=== PATIENT | female | born 1975 | race Caucasian/White ===

== ENCOUNTER 2016-06-27 15:10 | Emergency (ER) | payer OTHER ==
[~2016-06-27] VITALS: Ht 154.9 cm; Wt 72.5 kg
[~2016-06-27 15:10] MED LIST: LISI-660 PO; METF500T4 PO
[2016-06-27 15:15] VITALS: BP 120/88
[2016-06-27] MEDS ORDERED: ATOR10TA84 PO (15:22)
[2016-06-27] MEDS ORDERED: IBUPROFEN 800 MG TABLET PO ONE (19:00)
== END 2016-06-27 19:06 | disposition home or self-care (01) ==
LOC: EMS 15:14
DX: L02.92 Furuncle, unspecified (principal)
CPT/HCPCS: 56405; 82962; 99283; 99284

== ENCOUNTER 2016-08-02 15:34 | Emergency (ER) | payer OTHER ==
[~2016-08-02] VITALS: Ht 154.9 cm; Wt 77.3 kg
[~2016-08-02 15:34] MED LIST changes: +ATOR10TA84 PO
[2016-08-02 16:02] LABS: GLUCOSE,POINT OF CARE 144 MG/DL (70-110)
[2016-08-02 16:18] LABS: BASOPHILS % (AUTO) 0.3 % (0.0-2.0); EOSINOPHILS % (AUTO) 2.7 % (1.0-6.0); HEMATOCRIT 38.1 % (36-46); HEMOGLOBIN 12.2 g/dL (12.0-16.0); LYMPHOCYTES # (AUTO) 2.6 K/uL (1.0-4.8); MEAN CORPUSCULAR HEMOGLOBIN 27.1 pg (26.0-34.0); MEAN CORPUSCULAR HGB CONC 31.9 G/dL (31.0-37.0); MEAN CORPUSCULAR VOLUME 85 fL (80-100); MONOCYTES # (AUTO) 0.6 K/uL (0.1-1.0); MONOCYTES % (AUTO) 6.6 % (2.0-9.0); NEUTROPHILS % (AUTO) 63.4 % (40.0-70.0); PLATELET COUNT (AUTO) 256 K/uL (150-450); RED BLOOD CELL COUNT(AUTO) 4.48 MIL/uL (4.00-5.20); RED CELL DISTRIBUTION WIDTH 15.9 % (11.5-14.5); WHITE BLOOD COUNT (AUTO) 9.5 K/uL (4.5-11.0)
[2016-08-02 16:24] LABS: ANION GAP 10 mmol/L (8-16); CALCIUM, TOTAL 9.4 mg/dL (8.8-10.5); CARBON DIOXIDE 26 mmol/L (22-29); CHLORIDE 101 mmol/L (98-107); CREATININE 0.96 mg/dL (0.60-1.30); GLOMERULAR FILTR. RATE CALC > 60 mL/min (>60); SODIUM SERUM 137 mmol/L (136-145); UREA NITROGEN, BLOOD 14 mg/dL (7-18)
[2016-08-02 16:36] LABS: ALANINE AMINOTRANSFERASE 53 U/L (12-78); ALBUMIN 3.7 g/dL (3.4-5.0); ASPARTATE AMINOTRANSFERASE 21 U/L (15-37); BILIRUBIN,TOTAL 0.2 mg/dL (0.1-1.0); TOTAL PROTEIN, SERUM 7.7 g/dL (6.4-8.2)
[2016-08-02 16:45] VITALS: BP 137/103
[2016-08-02] MEDS ORDERED: ONDANSETRON HCL 4 MG/2 ML VIAL IM ONE (16:45)
[2016-08-02] MEDS ORDERED: DONNATAL/LIDOCAINE/MAALOX 55 ML BOTTLE PO ONE (16:45)
[2016-08-02 17:15] LABS: APPEARANCE,URINE CLOUDY (CLEAR); GLUCOSE, URINE (UA) NEGATIVE (NEGATIVE); KETONES,URINE NEGATIVE (NEGATIVE); LEUKOCYTE ESTERASE ,URINE NEGATIVE (NEGATIVE); OCCULT BLOOD,URINE NEGATIVE (NEGATIVE); PH,URINE 6.5 (5.0-8.0); PROTEIN,URINE NEGATIVE (NEGATIVE)
[2016-08-02 17:24] LABS: ADD UA MICROSCOPIC NO
[2016-08-02] MEDS ORDERED: PANTOPRAZOLE SODIUM 40 MG DR TABLET PO ONE (17:45)
== END 2016-08-02 19:10 | disposition home or self-care (01) ==
LOC: EMS 15:41
DX: K29.70 Gastritis, unspecified, without bleeding (principal); G43.909 Migraine, unspecified, not intractable, without status migrainosus; J45.909 Unspecified asthma, uncomplicated; E11.9 Type 2 diabetes mellitus without complications; I10 Essential (primary) hypertension; E78.00 Pure hypercholesterolemia, unspecified
CPT/HCPCS: 36415; 80053; 81003; 82962; 83690; 84702; 85025; 96372; 99284; J2405; Z7610

== ENCOUNTER 2016-09-23 07:05 | Emergency (ER) | payer OTHER ==
[~2016-09-23] VITALS: Ht 154.9 cm; Wt 77.0 kg
[2016-09-23 07:22] LABS: GLUCOSE,POINT OF CARE 147 MG/DL (70-110)
[2016-09-23 07:53] LABS: BASOPHILS % (AUTO) 0.3 % (0.0-2.0); HEMATOCRIT 39.6 % (36-46); HEMOGLOBIN 12.8 g/dL (12.0-16.0); LYMPHOCYTES # (AUTO) 0.9 K/uL (1.0-4.8); MEAN CORPUSCULAR HEMOGLOBIN 26.9 pg (26.0-34.0); MEAN CORPUSCULAR HGB CONC 32.2 G/dL (31.0-37.0); MEAN CORPUSCULAR VOLUME 84 fL (80-100); MONOCYTES # (AUTO) 0.4 K/uL (0.1-1.0); MONOCYTES % (AUTO) 4.4 % (2.0-9.0); NEUTROPHILS % (AUTO) 84.3 % (40.0-70.0); PLATELET COUNT (AUTO) 242 K/uL (150-450); RED BLOOD CELL COUNT(AUTO) 4.75 MIL/uL (4.00-5.20); WHITE BLOOD COUNT (AUTO) 9.5 K/uL (4.5-11.0)
[2016-09-23 08:04] LABS: ANION GAP 10 mmol/L (8-16); CARBON DIOXIDE 28 mmol/L (22-29); CHLORIDE 102 mmol/L (98-107); CREATININE 0.87 mg/dL (0.60-1.30); GLOMERULAR FILTR. RATE CALC > 60 mL/min (>60); POTASSIUM 3.8 mmol/L (3.5-5.1); SODIUM SERUM 140 mmol/L (136-145); UREA NITROGEN, BLOOD 18 mg/dL (7-18)
[2016-09-23 08:09] LABS: ALANINE AMINOTRANSFERASE 38 U/L (12-78); ALBUMIN 3.6 g/dL (3.4-5.0); ASPARTATE AMINOTRANSFERASE 16 U/L (15-37); BILIRUBIN,TOTAL 0.5 mg/dL (0.1-1.0); TOTAL PROTEIN, SERUM 7.7 g/dL (6.4-8.2)
[2016-09-23] MEDS ORDERED: ONDANSETRON HCL 4 MG/2 ML VIAL IVP ONE (08:15)
[2016-09-23] MEDS ORDERED: KETOROLAC TROMETHAMINE 30 MG/ML VIAL IVP ONE (08:15)
[2016-09-23 09:11] LABS: ADD UA MICROSCOPIC YES; APPEARANCE,URINE CLOUDY (CLEAR); GLUCOSE, URINE (UA) NEGATIVE (NEGATIVE); KETONES,URINE NEGATIVE (NEGATIVE); LEUKOCYTE ESTERASE ,URINE TRACE (NEGATIVE); OCCULT BLOOD,URINE NEGATIVE (NEGATIVE); PROTEIN,URINE NEGATIVE (NEGATIVE)
[2016-09-23 09:16] LABS: SQUAMOUS EPITHELIAL CELL,UR Moderate /LPF (None Seen)
[2016-09-23] MEDS ORDERED: PROMETHAZINE HCL 25 MG/ML VIAL IM ONE (12:00)
[2016-09-23 12:48] VITALS: BP 121/76
== END 2016-09-23 12:50 | disposition home or self-care (01) ==
LOC: EMS 07:07
DX: R10.13 Epigastric pain (principal); R11.2 Nausea with vomiting, unspecified; J45.909 Unspecified asthma, uncomplicated; E11.9 Type 2 diabetes mellitus without complications; I10 Essential (primary) hypertension; E78.00 Pure hypercholesterolemia, unspecified
CPT/HCPCS: 36415; 76700; 80053; 81001; 82962; 83690; 84484; 84703; 85025; 87086; 93005; 96372; 96374; 96375; 99285; J1885; J2405; J2550

== ENCOUNTER 2017-04-17 11:00 | Emergency (ER) | payer OTHER ==
[~2017-04-17] VITALS: Ht 154.9 cm; Wt 72.7 kg
[2017-04-17 11:47] LABS: GLUCOSE,POINT OF CARE 104 MG/DL (70-110)
[2017-04-17] MEDS ORDERED: DSS100 PO (11:51)
[2017-04-17] MEDS ORDERED: INHALER PO (11:51)
[2017-04-17] MEDS ORDERED: ACETAMINOPHEN 500 MG TABLET PO ONE (12:30)
[2017-04-17 12:50] LABS: BASOPHILS # (AUTO) 0.04 K/uL (0.00-0.20); BASOPHILS % (AUTO) 0.5 % (0.0-2.0); EOSINOPHILS # (AUTO) 0.32 K/uL (0.00-0.70); EOSINOPHILS % (AUTO) 3.84 % (1.0-6.0); HEMATOCRIT 37.7 % (36-46); HEMOGLOBIN 12.1 g/dL (12.0-16.0); LYMPHOCYTES # (AUTO) 2.3 K/uL (1.0-4.8); LYMPHOCYTES % (AUTO) 27.8 % (22.0-44.0); MEAN CORPUSCULAR HGB CONC 32.1 G/dL (31.0-37.0); MEAN CORPUSCULAR VOLUME 81 fL (80-100); MONOCYTES # (AUTO) 0.5 K/uL (0.1-1.0); MONOCYTES % (AUTO) 5.6 % (2.0-9.0); NEUTROPHILS # (AUTO) 5.1 K/uL (1.8-7.7); NEUTROPHILS % (AUTO) 62.3 % (40.0-70.0); PLATELET COUNT (AUTO) 242 K/uL (150-450); RED BLOOD CELL COUNT(AUTO) 4.66 MIL/uL (4.00-5.20); RED CELL DISTRIBUTION WIDTH 15.2 % (11.5-14.5); WHITE BLOOD COUNT (AUTO) 8.2 K/uL (4.5-11.0)
[2017-04-17 12:59] LABS: ANION GAP 8 mmol/L (8-16); CALCIUM, TOTAL 9.4 mg/dL (8.8-10.5); CARBON DIOXIDE 29 mmol/L (22-29); CHLORIDE 100 mmol/L (98-107); CREATININE 0.73 mg/dL (0.60-1.30); GLOMERULAR FILTR. RATE CALC > 60 mL/min (>60); POTASSIUM 3.7 mmol/L (3.5-5.1); SODIUM SERUM 137 mmol/L (136-145); UREA NITROGEN, BLOOD 20 mg/dL (7-18)
[2017-04-17 13:00] LABS: APPEARANCE,URINE CLOUDY (CLEAR); GLUCOSE, URINE (UA) NEGATIVE (NEGATIVE); KETONES,URINE NEGATIVE (NEGATIVE); LEUKOCYTE ESTERASE ,URINE NEGATIVE (NEGATIVE); OCCULT BLOOD,URINE NEGATIVE (NEGATIVE); PH,URINE 6.5 (5.0-8.0); PROTEIN,URINE NEGATIVE (NEGATIVE)
[2017-04-17 13:05] VITALS: BP 117/84
[2017-04-17 13:05] LABS: ALANINE AMINOTRANSFERASE 45 U/L (12-78); ALBUMIN 3.8 g/dL (3.4-5.0); ASPARTATE AMINOTRANSFERASE 16 U/L (15-37); BILIRUBIN,TOTAL 0.3 mg/dL (0.1-1.0); TOTAL PROTEIN, SERUM 7.6 g/dL (6.4-8.2)
[2017-04-17 13:16] LABS: ADD UA MICROSCOPIC YES
[2017-04-17 13:17] LABS: RBC,URINE None Seen /HPF (0-2); SQUAMOUS EPITHELIAL CELL,UR Many /LPF (None Seen); WBC,URINE 0-2 /HPF (0-5)
[2017-04-17] MEDS ORDERED: CIPROFLOXACIN HCL 250 MG TABLET PO ONE (13:30)
== END 2017-04-17 13:45 | disposition home or self-care (01) ==
LOC: EMS 11:01
DX: N12 Tubulo-interstitial nephritis, not specified as acute or chronic (principal); J45.909 Unspecified asthma, uncomplicated; E11.9 Type 2 diabetes mellitus without complications; E78.00 Pure hypercholesterolemia, unspecified; I10 Essential (primary) hypertension
CPT/HCPCS: 82962; 87086; 99284

== ENCOUNTER 2017-05-08 08:06 | Emergency (ER) | payer OTHER ==
[~2017-05-08] VITALS: Ht 154.9 cm; Wt 76.4 kg
[~2017-05-08 08:06] MED LIST changes: +DSS100 PO; +INHALER PO
[2017-05-08 08:23] LABS: GLUCOSE,POINT OF CARE 152 MG/DL (70-110)
[2017-05-08] MEDS ORDERED: METHOCARBAMOL 500 MG TABLET PO ONE (10:00)
[2017-05-08] MEDS ORDERED: KETOROLAC TROMETHAMINE 60 MG/2 ML VIAL IM ONE (10:00)
[2017-05-08 10:03] VITALS: BP 125/79
== END 2017-05-08 10:47 | disposition home or self-care (01) ==
LOC: EMS 08:08
DX: S46.911A Strain of unspecified muscle, fascia and tendon at shoulder and upper arm level, right arm, initial encounter (principal); I10 Essential (primary) hypertension; E11.9 Type 2 diabetes mellitus without complications; E78.00 Pure hypercholesterolemia, unspecified; J45.909 Unspecified asthma, uncomplicated; V49.40XA Driver injured in collision with unspecified motor vehicles in traffic accident, initial encounter; Y93.89 Activity, other specified; Y92.89 Other specified places as the place of occurrence of the external cause; Y99.8 Other external cause status
CPT/HCPCS: 82962; 96372; 99283; J1885

== ENCOUNTER 2017-06-03 20:05 | Emergency (ER) | payer OTHER ==
[~2017-06-03] VITALS: Ht 154.9 cm; Wt 75.5 kg
[2017-06-03 20:39] LABS: BASOPHILS % (AUTO) 0.4 % (0.0-2.0); EOSINOPHILS % (AUTO) 1.4 % (1.0-6.0); HEMATOCRIT 40.8 % (36-46); HEMOGLOBIN 13.5 g/dL (12.0-16.0); LYMPHOCYTES # (AUTO) 2.3 K/uL (1.0-4.8); LYMPHOCYTES % (AUTO) 20.5 % (22.0-44.0); MEAN CORPUSCULAR HEMOGLOBIN 26.2 pg (26.0-34.0); MEAN CORPUSCULAR VOLUME 79 fL (80-100); MONOCYTES # (AUTO) 0.9 K/uL (0.1-1.0); NEUTROPHILS % (AUTO) 69.7 % (40.0-70.0); PLATELET COUNT (AUTO) 295 K/uL (150-450); RED BLOOD CELL COUNT(AUTO) 5.15 MIL/uL (4.00-5.20); RED CELL DISTRIBUTION WIDTH 16.6 % (11.5-14.5)
[2017-06-03 20:45] LABS: APPEARANCE,URINE CLOUDY (CLEAR); BILIRUBIN,URINE NEGATIVE (NEGATIVE); GLUCOSE, URINE (UA) NEGATIVE (NEGATIVE); KETONES,URINE NEGATIVE (NEGATIVE); NITRATE,URINE POSITIVE (NEGATIVE); OCCULT BLOOD,URINE NEGATIVE (NEGATIVE); PH,URINE 6.5 (5.0-8.0); PROTEIN,URINE NEGATIVE (NEGATIVE)
[2017-06-03 20:50] LABS: LEUKOCYTE ESTERASE ,URINE SMALL (NEGATIVE)
[2017-06-03 20:51] LABS: CALCIUM, TOTAL 9.7 mg/dL (8.8-10.5); CREATININE 1.15 mg/dL (0.60-1.30); POTASSIUM 3.5 mmol/L (3.5-5.1)
[2017-06-03 20:51] LABS: BACTERIA,URINE Many /HPF (None Seen); RBC,URINE 0-2 /HPF (0-2); SQUAMOUS EPITHELIAL CELL,UR Many /LPF (None Seen)
[2017-06-03 20:57] LABS: ALBUMIN 4.3 g/dL (3.4-5.0); BILIRUBIN,TOTAL 0.4 mg/dL (0.1-1.0); TOTAL PROTEIN, SERUM 8.5 g/dL (6.4-8.2)
[2017-06-03 23:33] VITALS: BP 127/69
== END 2017-06-03 23:40 | disposition home or self-care (01) ==
LOC: EMS 20:07
DX: N39.0 Urinary tract infection, site not specified (principal); E11.9 Type 2 diabetes mellitus without complications; I10 Essential (primary) hypertension; E78.00 Pure hypercholesterolemia, unspecified; J45.909 Unspecified asthma, uncomplicated
CPT/HCPCS: 87086; 99284

== ENCOUNTER 2017-06-08 03:56 | Emergency (ER) | payer OTHER ==
[~2017-06-08] VITALS: Ht 154.9 cm; Wt 74.5 kg
[2017-06-08 04:12] LABS: GLUCOSE,POINT OF CARE 141 MG/DL (70-110)
[2017-06-08] MEDS ORDERED: MORPHINE SULFATE 4 MG/ML SYRINGE IVP ONE (06:30)
[2017-06-08] MEDS ORDERED: SODIUM CHLORIDE 0.9% 1,000 ML IV ONE (06:30)
[2017-06-08] MEDS ORDERED: ONDANSETRON HCL 4 MG/2 ML VIAL IVP ONE (06:30)
[2017-06-08 07:03] LABS: BASOPHILS # (AUTO) 0.04 K/uL (0.00-0.20); BASOPHILS % (AUTO) 0.3 % (0.0-2.0); EOSINOPHILS # (AUTO) 0.14 K/uL (0.00-0.70); HEMATOCRIT 40.6 % (36-46); LYMPHOCYTES # (AUTO) 1.9 K/uL (1.0-4.8); LYMPHOCYTES % (AUTO) 17.8 % (22.0-44.0); MEAN CORPUSCULAR HEMOGLOBIN 25.8 pg (26.0-34.0); MEAN CORPUSCULAR HGB CONC 32.2 G/dL (31.0-37.0); MEAN CORPUSCULAR VOLUME 80 fL (80-100); MONOCYTES # (AUTO) 0.3 K/uL (0.1-1.0); MONOCYTES % (AUTO) 3.2 % (2.0-9.0); NEUTROPHILS # (AUTO) 8.1 K/uL (1.8-7.7); NEUTROPHILS % (AUTO) 77.4 % (40.0-70.0); PLATELET COUNT (AUTO) 233 K/uL (150-450); RED BLOOD CELL COUNT(AUTO) 5.06 MIL/uL (4.00-5.20); RED CELL DISTRIBUTION WIDTH 16.8 % (11.5-14.5)
[2017-06-08 07:12] LABS: ANION GAP 8 mmol/L (8-16); CALCIUM, TOTAL 8.9 mg/dL (8.8-10.5); CARBON DIOXIDE 27 mmol/L (22-29); CHLORIDE 104 mmol/L (98-107); CREATININE 0.88 mg/dL (0.60-1.30); GLOMERULAR FILTR. RATE CALC > 60 mL/min (>60); GLUCOSE,RANDOM 133 mg/dL (70-110); POTASSIUM 3.8 mmol/L (3.5-5.1); SODIUM SERUM 139 mmol/L (136-145); UREA NITROGEN, BLOOD 16 mg/dL (7-18)
[2017-06-08 07:18] LABS: ALANINE AMINOTRANSFERASE 57 U/L (12-78); ALKALINE PHOSPHATASE 91 U/L (46-116); ASPARTATE AMINOTRANSFERASE 23 U/L (15-37); BILIRUBIN,TOTAL 0.3 mg/dL (0.1-1.0); TOTAL PROTEIN, SERUM 7.8 g/dL (6.4-8.2)
[2017-06-08 07:39] LABS: APPEARANCE,URINE CLEAR (CLEAR); BILIRUBIN,URINE NEGATIVE (NEGATIVE); GLUCOSE, URINE (UA) NEGATIVE (NEGATIVE); KETONES,URINE TRACE mg/dL (NEGATIVE); LEUKOCYTE ESTERASE ,URINE NEGATIVE (NEGATIVE); NITRATE,URINE NEGATIVE (NEGATIVE); OCCULT BLOOD,URINE NEGATIVE (NEGATIVE); PROTEIN,URINE NEGATIVE (NEGATIVE); UROBILINOGEN,URINE 0.2 mg/dL (<=1.0)
[2017-06-08 07:42] LABS: BACTERIA,URINE None Seen /HPF (None Seen); RBC,URINE None Seen /HPF (0-2); SQUAMOUS EPITHELIAL CELL,UR Rare /LPF (None Seen); WBC,URINE None Seen /HPF (0-5)
[2017-06-08 09:37] VITALS: BP 137/78
== END 2017-06-08 09:50 | disposition home or self-care (01) ==
LOC: EMS 03:56
DX: M54.5 Low back pain (principal); J45.909 Unspecified asthma, uncomplicated; E11.9 Type 2 diabetes mellitus without complications; E78.00 Pure hypercholesterolemia, unspecified; I10 Essential (primary) hypertension
CPT/HCPCS: 36415; 74176; 80053; 81001; 81025; 82962; 85025; 96374; 96375; 99285; J2270; J2405; J7030

== ENCOUNTER 2017-07-09 19:44 | Emergency (ER) | payer OTHER ==
[~2017-07-09] VITALS: Ht 154.9 cm; Wt 74.1 kg
[2017-07-09] MEDS ORDERED: LISI-660 PO (20:16)
[2017-07-09 20:23] LABS: GLUCOSE,POINT OF CARE 112 MG/DL (70-110)
[2017-07-09] MEDS ORDERED: DEXAMETHASONE SOD PHOS 4 MG/ML 5 ML VIAL IVP ONE (22:00)
[2017-07-09] MEDS ORDERED: MORPHINE SULFATE 10 MG/ML SYRINGE IVP ONE (22:00)
[2017-07-09] MEDS ORDERED: PROCHLORPERAZINE EDISYLATE 5 MG/ML 2 ML VIAL IVP ONE (22:00)
[2017-07-09 23:50] VITALS: BP 122/63
== END 2017-07-09 23:52 | disposition home or self-care (01) ==
LOC: EMS 19:47
DX: G43.909 Migraine, unspecified, not intractable, without status migrainosus (principal); I10 Essential (primary) hypertension; E78.00 Pure hypercholesterolemia, unspecified; E11.9 Type 2 diabetes mellitus without complications; J45.909 Unspecified asthma, uncomplicated
CPT/HCPCS: 81025; 82948; 82962; 96374; 96375; 99284; J0780; J1100; J2270

== ENCOUNTER 2019-02-23 13:55 | Emergency (ER) | payer OTHER ==
[~2019-02-23] VITALS: Ht 152.4 cm; Wt 74.1 kg
[~2019-02-23 13:55] MED LIST changes: +METF-960 PO; -METF500T4 PO
[2019-02-23] MEDS ORDERED: OMEP10 PO (14:16)
[2019-02-23] MEDS ORDERED: HYDR25TA PO (14:16)
[2019-02-23 14:35] LABS: GLUCOSE,POINT OF CARE 134 MG/DL (70-110)
[2019-02-23 15:44] LABS: APPEARANCE,URINE CLOUDY (CLEAR); BILIRUBIN,URINE NEGATIVE (NEGATIVE); GLUCOSE, URINE (UA) NEGATIVE (NEGATIVE); KETONES,URINE NEGATIVE (NEGATIVE); LEUKOCYTE ESTERASE ,URINE LARGE (NEGATIVE); NITRATE,URINE NEGATIVE (NEGATIVE); OCCULT BLOOD,URINE LARGE (NEGATIVE); PROTEIN,URINE SEE CONFIRM (NEGATIVE)
[2019-02-23 16:12] LABS: SULFOSALICYLIC ACID,URINE 4+ (Negative)
[2019-02-23 16:13] LABS: RBC,URINE >100 /HPF (0-2); WBC,URINE >100 /HPF (0-5)
[2019-02-23 16:14] LABS: BACTERIA,URINE Moderate /HPF (None Seen); SQUAMOUS EPITHELIAL CELL,UR Few /LPF (None Seen)
[2019-02-23] MEDS ORDERED: PHENAZOPYRIDINE HCL 100 MG TABLET PO ONE (16:30)
[2019-02-23] MEDS ORDERED: CefTRIAXone SODIUM 1 GM/VIAL IM ONE (16:30)
[2019-02-23] MEDS ORDERED: LIDOCAINE/PF 1% 2 ML VIAL IM ONE (16:30)
[2019-02-23] MEDS ORDERED: CEPHALEXIN MONOHYDRATE 500 MG CAPSULE PO ONE (16:30)
[2019-02-23 16:37] VITALS: BP 131/76
== END 2019-02-23 17:24 | disposition home or self-care (01) ==
LOC: EMS 13:55
DX: N39.0 Urinary tract infection, site not specified (principal); J45.909 Unspecified asthma, uncomplicated; E11.9 Type 2 diabetes mellitus without complications; E78.00 Pure hypercholesterolemia, unspecified; I10 Essential (primary) hypertension; Z79.899 Other long term (current) drug therapy; Z79.84 Long term (current) use of oral hypoglycemic drugs
CPT/HCPCS: 81001; 82962; 84703; 87077; 87086; 87186; 96372; 99283; J0696; J3490

== ENCOUNTER 2020-10-07 07:10 | Day surgery (SDC) | payer OTHER ==
[2020-10-05 15:04] LABS: COVID AG,FIA SOURCE NASOPHARYNGEAL
[2020-10-05 15:07] LABS: BASOPHILS % (AUTO) 0.8 % (0.0-2.0); EOSINOPHILS % (AUTO) 2.9 % (1.0-6.0); HEMATOCRIT 41.5 % (36-46); HEMOGLOBIN 13.6 g/dL (12.0-16.0); LYMPHOCYTES # (AUTO) 2.2 K/uL (1.0-4.8); LYMPHOCYTES % (AUTO) 28.4 % (22.0-44.0); MEAN CORPUSCULAR HEMOGLOBIN 27.1 pg (26.0-34.0); MEAN CORPUSCULAR HGB CONC 32.8 G/dL (31.0-37.0); MEAN CORPUSCULAR VOLUME 83 fL (80-100); MONOCYTES # (AUTO) 0.5 K/uL (0.1-1.0); MONOCYTES % (AUTO) 6.7 % (2.0-9.0); NEUTROPHILS # (AUTO) 4.7 K/uL (1.8-7.7); NEUTROPHILS % (AUTO) 61.2 % (40.0-70.0); PLATELET COUNT (AUTO) 261 K/uL (150-450); RED BLOOD CELL COUNT(AUTO) 5.01 MIL/uL (4.00-5.20)
[2020-10-05 15:34] LABS: ANION GAP 12 mmol/L (8-16); CALCIUM, TOTAL 9.8 mg/dL (8.8-10.5); CARBON DIOXIDE 29 mmol/L (22-29); CHLORIDE 94 mmol/L (98-107); CREATININE 0.87 mg/dL (0.60-1.30); GLOMERULAR FILTR. RATE CALC > 60 mL/min (>60); GLUCOSE,RANDOM 123 mg/dL (70-110); HCG,QUANTITATIVE < 1 mIU/mL (0-6); SODIUM SERUM 135 mmol/L (136-145); UREA NITROGEN, BLOOD 18 mg/dL (7-18)
[2020-10-05 15:36] LABS: POTASSIUM 2.7 mmol/L (3.5-5.1)
[~2020-10-07] VITALS: Ht 152.4 cm; Wt 81.4 kg
[~2020-10-07 07:10] MED LIST changes: -ATOR10TA84 PO; +ATOR40TA71 PO; +HYDR25TA2 PO; -LISI-660 PO; +LISI-892 PO; +OMEP10 PO; +ONDA4TAB10 PO; +RINGERS SOLUTION,LACTATED 1,000 ML IV ONE; +SERT-439 PO; +SUMA25TA9 PO
[2020-10-07] MEDS ORDERED: MIDAZOLAM HCL 2 MG/2 ML VIAL IVP ONE (07:11)
[2020-10-07] MEDS ORDERED: FentaNYL CITRATE PF 100 MCG/2 ML VIAL IVP ONE (07:11)
[2020-10-07] MEDS ORDERED: SODIUM CHLORIDE 0.9% 0 ML ONE (07:13)
[2020-10-07] MEDS ORDERED: BUPIVACAINE HCL/PF 0.25% 30 ML VIAL ONE (07:13)
[2020-10-07] MEDS ORDERED: METF-960 PO (07:37)
[2020-10-07 08:01] LABS: GLUCOMETER DEV NAME(LOC) SDS.; GLUCOSE,POINT OF CARE 162 MG/DL (70-110)
[2020-10-07] MEDS ORDERED: MEPERIDINE-PF 25 MG/ML VIAL IVP PRN (08:30)
[2020-10-07] MEDS ORDERED: FentaNYL CITRATE PF 100 MCG/2 ML VIAL IVP PRN (08:30)
[2020-10-07] MEDS ORDERED: HYDROmorphone 2 MG/ML VIAL ONE (10:15)
[2020-10-07] MEDS: HYDROmorphone 2 MG/ML VIAL IVP PRN ×2 (10:16→10:50)
[2020-10-07] MEDS ORDERED: OxyCODONE HCL/ACETAMINOPHEN 5-325 MG TABLET PO ONE ×2 (11:15→11:45)
[2020-10-07] MEDS ORDERED: OxyCODONE HCL/ACETAMINOPHEN 5-325 MG TABLET ONE (11:28)
[2020-10-07] MEDS ORDERED: PROPOFOL 1% 20 ML VIAL IVP ONE (12:00)
[2020-10-07] MEDS ORDERED: DEXAMETHASONE SOD PHOS 4 MG/ML VIAL IVP ONE (12:00)
[2020-10-07] MEDS ORDERED: KETOROLAC TROMETHAMINE 60 MG/2 ML VIAL IM ONE (12:00)
[2020-10-07] MEDS ORDERED: ROCURONIUM BROMIDE 10 MG/ML 5 ML VIAL IVP ONE (12:00)
[2020-10-07] MEDS ORDERED: SUCCINYLCHOLINE CHLORIDE 20 MG/ML 10 ML VIAL IVP ONE (12:00)
[2020-10-07] MEDS ORDERED: ONDANSETRON HCL 4 MG/2 ML VIAL IVP ONE (12:00)
[2020-10-07] MEDS ORDERED: LIDOCAINE/PF 2% 5 ML VIAL IM ONE (12:00)
== END 2020-10-07 12:30 | disposition home or self-care (01) ==
LOC: SURGERY 07:10
PROVIDERS: ATTEND Obstetrics & Gynecology
DX: N85.8 Other specified noninflammatory disorders of uterus (principal); N83.202 Unspecified ovarian cyst, left side; K66.0 Peritoneal adhesions (postprocedural) (postinfection); E66.3 Overweight; E11.9 Type 2 diabetes mellitus without complications; Z68.35 Body mass index [BMI] 35.0-35.9, adult; I10 Essential (primary) hypertension; Z79.899 Other long term (current) drug therapy; Z98.890 Other specified postprocedural states; Z72.89 Other problems related to lifestyle; Z80.3 Family history of malignant neoplasm of breast
CPT/HCPCS: 36415 ×2; 58662; 80048; 82962; 84132; 84702; 85025; 86850; 86900; 86901; 87426; 88108; 88305; C9803; J0330; J0690; J1100; J1170; J1885; J2250; J2405; J2704; J3010; J3490 ×3; J7120; J7030

== ENCOUNTER 2021-04-24 14:29 | Emergency (ER) | payer OTHER ==
[~2021-04-24] VITALS: Ht 152.4 cm; Wt 69.1 kg
[~2021-04-24 14:29] MED LIST changes: -LISI-892 PO; +METF-1211 PO; -METF-960 PO; -RINGERS SOLUTION,LACTATED 1,000 ML IV ONE
[2021-04-24] MEDS ORDERED: KETOROLAC TROMETHAMINE 30 MG/ML VIAL IM ONE (15:15)
[2021-04-24 16:39] VITALS: BP 129/77
== END 2021-04-24 17:00 | disposition home or self-care (01) ==
LOC: EMS 14:29
DX: S83.91XA Sprain of unspecified site of right knee, initial encounter (principal); X58.XXXA Exposure to other specified factors, initial encounter; Y93.89 Activity, other specified; Y92.89 Other specified places as the place of occurrence of the external cause; Y99.8 Other external cause status; E11.9 Type 2 diabetes mellitus without complications; I10 Essential (primary) hypertension; E78.00 Pure hypercholesterolemia, unspecified; K64.9 Unspecified hemorrhoids
CPT/HCPCS: 73562; 96372; 99283; J1885

== ENCOUNTER 2021-06-22 18:02 | Emergency (ER) | payer OTHER ==
[~2021-06-22] VITALS: Ht 152.4 cm; Wt 155.0 kg
[2021-06-22 18:08] VITALS: BP 144/98
[2021-06-22] MEDS ORDERED: [UNRECOGNIZED DRUG - CODE] AU (20:24)
== END 2021-06-22 20:30 | disposition home or self-care (01) ==
LOC: EMS 18:03
DX: I10 Essential (primary) hypertension (principal); H93.13 Tinnitus, bilateral; J45.909 Unspecified asthma, uncomplicated; E11.9 Type 2 diabetes mellitus without complications; E78.00 Pure hypercholesterolemia, unspecified; Z79.84 Long term (current) use of oral hypoglycemic drugs
CPT/HCPCS: 99282; Z7502

== ENCOUNTER 2023-12-22 16:29 | Emergency (ER) | payer OTHER ==
[~2023-12-22] VITALS: Ht 152.4 cm; Wt 72.7 kg
[~2023-12-22 16:29] MED LIST changes: -DOCU-385 PO; -NIRM1TAB10 PO
[2023-12-22 16:49] VITALS: BP 145/75; PULSE 73; RESP 16; TEMP 98.2
[2023-12-22 17:16] LABS: GLUCOMETER DEV NAME(LOC) ER.7; GLUCOSE,POINT OF CARE 86 MG/DL (70-110)
[2023-12-22 17:18] LABS: COVID AG,FIA SOURCE NASAL SWAB
[2023-12-22 17:52] LABS: INFLUENZA TYPE A NEGATIVE FOR TYPE A (NEGATIVE); INFLUENZA TYPE B NEGATIVE FOR TYPE B (NEGATIVE)
[2023-12-22 18:10] LABS: SARS-COV2 (COVID) ANTIGEN,FIA Positive (Negative)
[2023-12-22] MEDS ORDERED: NIRM1TAB10 PO (19:10)
[2023-12-23] MEDS ORDERED: DOCU-385 PO (13:11)
== END 2023-12-22 19:29 | disposition home or self-care (01) ==
LOC: EMS 16:29
DX: U07.1 COVID-19 (principal); J45.909 Unspecified asthma, uncomplicated; E11.9 Type 2 diabetes mellitus without complications; E78.00 Pure hypercholesterolemia, unspecified; I10 Essential (primary) hypertension; Z98.890 Other specified postprocedural states
CPT/HCPCS: 82962; 87804; 99283

== ENCOUNTER → 2023-12-22 | Emergency (ER) | payer OTHER ==
[~2023-12-22] MED LIST changes: +DOCU-385 PO; +NIRM1TAB10 PO; -OMEP10 PO; +OMEP10CA38 PO; +ONDA-243 PO; -ONDA4TAB10 PO; +SUMA25TA15 PO; -SUMA25TA9 PO; +[UNRECOGNIZED DRUG - CODE] AU
== END | disposition still patient (30) ==
LOC: EMS 21:14
DX: Z53.21 Procedure and treatment not carried out due to patient leaving prior to being seen by health care provider (principal)

== ENCOUNTER 2023-12-28 13:01 | Emergency (ER) | payer OTHER ==
[~2023-12-28] VITALS: Ht 154.9 cm; Wt 79.5 kg
[~2023-12-28 13:01] MED LIST changes: +DOCU-385 PO; -DSS100 PO; -INHALER PO; +NIRM1TAB10 PO; -ONDA-243 PO; -SUMA25TA15 PO; -[UNRECOGNIZED DRUG - CODE] AU
[2023-12-28 13:03] VITALS: TEMP 98.9
[2023-12-28 13:28] LABS: COVID AG,FIA SOURCE NASAL SWAB
[2023-12-28 13:47] LABS: SARS-COV2 (COVID) ANTIGEN,FIA Negative (Negative)
[2023-12-28] MEDS ORDERED: GUAIFDM PO (14:31)
[2023-12-28] MEDS ORDERED: ACET-66 PO (14:31)
[2023-12-28 14:36] VITALS: BP 145/90; PULSE 80; RESP 18
== END 2023-12-28 15:43 | disposition home or self-care (01) ==
LOC: EMS 13:03
DX: J06.9 Acute upper respiratory infection, unspecified (principal); R05.9 Cough, unspecified; M79.10 Myalgia, unspecified site; R09.89 Other specified symptoms and signs involving the circulatory and respiratory systems; J45.909 Unspecified asthma, uncomplicated; E11.9 Type 2 diabetes mellitus without complications; I10 Essential (primary) hypertension; Z20.822 Contact with and (suspected) exposure to COVID-19
CPT/HCPCS: 99283